=== PATIENT | male | born 1965 | race Caucasian/White ===

== ENCOUNTER 2018-03-01 07:37 | Day surgery (SDC) | payer OTHER ==
[2018-03-01] MEDS ORDERED: Ringers Lactate 1,000 ML IV ONE (08:20)
[2018-03-01] MEDS ORDERED: CEFOXITIN/SWI 1gm 1 GM/10 ML SYR ONE (08:20)
[2018-03-01] MEDS ORDERED: LIDOCAINE 2% MPF 5 ML VIAL ONE (08:35)
[2018-03-01] MEDS ORDERED: PROPOFOL 200 MG/20 ML VIAL IV ONE (08:35)
[2018-03-01] MEDS ORDERED: MIDAZOLAM HCL 2 MG/2 ML INJ ONE (08:35)
[2018-03-01] MEDS ORDERED: FENTANYL CITR 250 MCG/5 ML ONE (08:36)
--- NOTE | 2018-03-01 08:38 | RAD REPORT ---
EXAM DESCRIPTION: RAD - Chest Pa And Lat (2 Views) - 03/01/2018 8:31 am CLINICAL HISTORY: Preop Chest pain. COMPARISON: No comparisons FINDINGS: The lungs are clear. The heart is normal in size. No displaced fractures. IMPRESSION: No acute or concerning finding suspected.
[2018-03-01] MEDS ORDERED: GLYCOPYRROLATE 0.2 MG/ML SYR ONE (09:28)
[2018-03-01 10:59] VITALS: BP 134/75; TEMP 97.1; O2SAT 100
--- NOTE | 2018-03-01 20:31 | OP ---
Date of Procedure: 03/01/2018 Surgeon: Edmundo Rose MD Preoperative Diagnosis: Thrombosed hemorrhoid. Postoperative Diagnoses: Thrombosed hemorrhoid with an anal polyp. Procedure: Exam under anesthesia, rigid proctoscopy, hemorrhoidectomy, excision of anal polyp. Estimated Blood Loss: Minimal. Specimens: Left lateral hemorrhoid and posterior midline polyp. Findings: Above. Anesthesia: General. Complications: None. Disposition: The patient tolerated the procedure in stable condition and was taken to recovery room in good general condition. Operative Note: The patient was brought to the OR and placed in supine position. General anesthesia was begun. The patient placed in lithotomy position and then exam under anesthesia revealed a large thrombosed left lateral hemorrhoid and posterior midline anal polyp. The patient was prepped and dr aped in usual sterile fashion. Rigid proctoscopy did not reveal any internal evidence of disease. S ubsequently, Marcaine 0.5% was infiltrated locally and then a Harmonic Scalpel used to excise thrombo sed hemorrhoid as well as anal polyp. Then bleeding controlled with cautery and then sterile dressing was applied. The patient was awakened and taken to Recovery in good general condition. /MODL Voice ID: [id number] Report ID: [id number]
--- NOTE | 2018-03-01 20:31 | DS ---
Date of Discharge: 03/01/2018 Discharge Note: The patient will go to Day Surgery and home when stable. Disposition: Home. Condition: Stable. Discharge Instructions: Resume home medications and diet. Activity as tolerated. No heavy lifting. Remove dressing in a.m. October shower. Sitz baths q.i.d. High-fiber diet. Procto-HC 2.5% into anus b.i.d. Colace 100 mg p.o. b.i.d. and Tylenol No. 3 one tablet p.o. q.4 p.r.n. pain. Follow up in m y office 2 weeks. Call for appointment. SILVINA Voice ID: [id number] Report ID: [id number]
--- NOTE | 2018-03-02 06:57 | EKG ---
Test Date: 2018-03-01 Test Time: 08:18:20 [employer] Poll[employer] Specialist: BRUNO MEASUREMENT RESULTS: Intervals: Rate: 50 AL: 158 QRSD: 78 QT: 462 QTc: 421 [place]: P: 16 AL: 158 QRS: 9 T: 19 INTERPRETIVE STATEMENTS: Sinus bradycardia Otherwise normal ECG Compared to ECG 09/29/2014 13:34:49 No significant changes Electronically Signed On 03-02-18 06:54:57 CDT by Alexi Johnson
== END 2018-03-01 10:58 | disposition home or self-care (01) ==
LOC: OR 07:37
PROVIDERS: ATTEND Surgery
PROC: 0DBQXZX Excision of Anus, External Approach, Diagnostic (ICD-10-PCS; 2018-03-01)
PROC: 0DJD8ZZ Inspection of Lower Intestinal Tract, Via Natural or Artificial Opening Endoscopic (ICD-10-PCS; 2018-03-01)
PROC: 06BY0ZC Excision of Hemorrhoidal Plexus, Open Approach (ICD-10-PCS; principal; 2018-03-01 09:00)
DX: K64.5 Perianal venous thrombosis (principal); K62.0 Anal polyp; Z80.9 Family history of malignant neoplasm, unspecified
CPT/HCPCS: 71046; 88304; 88305; 93005; J2250